=== PATIENT | male | born 1945 | race Caucasian/White ===

== ENCOUNTER 2018-10-01 15:19 | Inpatient (IN) | payer MEDICARE ==
[~2018-10-01] VITALS: Ht 177.8 cm; Wt 65.8 kg
[2018-10-01 16:38] LABS: BASOPHILS # (AUTO) 0.06 x10^3/uL (0-0.1); BASOPHILS % (AUTO) 1 % (0-1); EOSINOPHILS # (AUTO) 0.15 x10^3/uL (0-0.4); EOSINOPHILS % (AUTO) 2 % (1-7); LYMPHOCYTES % (AUTO) 24 % (22-44); MD NO; MEAN CORPUSCULAR HEMOGLOBIN 30.2 pg (27.5-34.5); MEAN CORPUSCULAR HGB CONC 33.7 g/dL (33.2-36.2); MEAN CORPUSCULAR VOLUME 89.8 fL (81-97); MEAN PLATELET VOLUME 7.8 fL (7.4-10.4); MONOCYTES # (AUTO) 0.78 x10^3/uL (0.2-0.8); MONOCYTES % (AUTO) 10 % (2-9); NEUTROPHILS # (AUTO) 4.73 x10^3/uL (1.8-6.8); NEUTROPHILS % (AUTO) 63 % (42-75); PLATELET COUNT 193 x10^3/uL (130-400); RED BLOOD COUNT 4.89 x10^6/uL (4.38-5.82); RED CELL DISTRIBUTION WIDTH 13.4 % (9.4-14.8)
[2018-10-01 16:48] LABS: CHLORIDE 104 mmol/L (98-107)
[2018-10-01 16:49] LABS: ALBUMIN 3.8 g/dL (3.4-5.0); ANION GAP 7 mmol/L (5-15); CALCIUM 8.1 mg/dL (8.5-10.1); CREATININE 1.31 mg/dL (0.7-1.3)
[2018-10-01] MEDS ORDERED: CARV-39 PO (18:04)
[2018-10-01] MEDS ORDERED: ROSU5TAB PO (18:05)
[2018-10-01] MEDS ORDERED: ASPIRIN 81 MG TABLET CHEW ONE (18:24)
[2018-10-01] MEDS ORDERED: ASPIRIN 81 MG TABLET CHEW PO ONE (18:30)
[2018-10-01] MEDS ORDERED: SODIUM CHLORIDE 0.9% 1,000ML IVBOLUS ONE (19:00)
[2018-10-01] MEDS ORDERED: DOCUSATE 100 MG CAPSULE PO PRN (19:30)
[2018-10-01] MEDS ORDERED: ONDANSETRON 4 MG TABLET PO PRN (19:30)
[2018-10-01] MEDS ORDERED: BISACODYL 10 MG SUPP PR PRN (19:30)
[2018-10-01] MEDS ORDERED: POLYETHYLENE GLYCOL 17 GM PACKET PO PRN (19:30)
[2018-10-01] MEDS ORDERED: ACETAMINOPHEN 325 MG TABLET PO PRN (19:30)
[2018-10-01 20:00] VITALS: BP 148/75
[2018-10-01 20:16] LABS: HEMOGLOBIN A1C 11.4 % (4.2-6.3)
[2018-10-01] MEDS: CARVEDILOL 25 MG TABLET PO SCH (22:35)
[2018-10-01] MEDS: ATORVASTATIN 40 MG TABLET PO SCH (22:35)
[2018-10-02] VITALS: BP 118/61
[2018-10-02 05:20] LABS: BASOPHILS # (AUTO) 0.05 x10^3/uL (0-0.1); BASOPHILS % (AUTO) 1 % (0-1); EOSINOPHILS # (AUTO) 0.16 x10^3/uL (0-0.4); EOSINOPHILS % (AUTO) 2 % (1-7); LYMPHOCYTES # (AUTO) 1.96 x10^3/uL (1-3.4); LYMPHOCYTES % (AUTO) 26 % (22-44); MD NO; MEAN CORPUSCULAR HEMOGLOBIN 30.7 pg (27.5-34.5); MEAN CORPUSCULAR HGB CONC 34.3 g/dL (33.2-36.2); MEAN CORPUSCULAR VOLUME 89.5 fL (81-97); MEAN PLATELET VOLUME 8.1 fL (7.4-10.4); MONOCYTES % (AUTO) 9 % (2-9); NEUTROPHILS # (AUTO) 4.68 x10^3/uL (1.8-6.8); NEUTROPHILS % (AUTO) 62 % (42-75); PLATELET COUNT 183 x10^3/uL (130-400); RED BLOOD COUNT 4.74 x10^6/uL (4.38-5.82); RED CELL DISTRIBUTION WIDTH 13.3 % (9.4-14.8)
[2018-10-02 05:30] LABS: ALBUMIN 3.5 g/dL (3.4-5.0); ANION GAP 8 mmol/L (5-15); CALCIUM 8.4 mg/dL (8.5-10.1); CHLORIDE 107 mmol/L (98-107)
[2018-10-02 05:35] LABS: ALANINE AMINOTRANSFERASE 33 U/L (12-78); ALKALINE PHOSPHATASE 70 U/L (45-117); BILIRUBIN,TOTAL 0.6 mg/dL (0.2-1.0); CHOL/HDL RATIO 2.7; CHOLESTEROL, TOTAL 129 mg/dL (140-239); CREATININE 1.26 mg/dL (0.7-1.3); HDL CHOL % 36 % (26-37); HDL CHOLESTEROL (DIRECT) 47 mg/dL (40-60); LDL CHOLESTEROL,CALCULATED 34 mg/dL (54-169); LDL/HDL RATIO 0.7 (0.5-3.0); TOTAL PROTEIN 6.5 g/dL (6.4-8.2); TRIGLYCERIDES 241 mg/dL (50-200); VLDL CHOLESTEROL 48 mg/dL (0-25)
[2018-10-02] MEDS ORDERED: INSULIN LISPRO 100 UNITS/ML, PEN SQ-INSULIN SCH (07:00)
[2018-10-02 07:04] VITALS: BP 134/69
[2018-10-02] MEDS: CARVEDILOL 25 MG TABLET PO SCH ×2 (07:58→21:28)
[2018-10-02] MEDS: CEFDINIR 300 MG CAPSULE PO SCH (07:58)
[2018-10-02] MEDS ORDERED: ASPIRIN 81 MG TABLET CHEW PO/NG SCH (09:00)
[2018-10-02] MEDS: CLOPIDOGREL 75 MG TABLET PO SCH (09:34)
[2018-10-02 10:01] LABS: HCT (SEDRATE) 42.5 % (39.2-51.8)
[2018-10-02 10:46] LABS: MICROSCOPIC NOT IND
[2018-10-02 10:50] LABS: CULTURE INDICATED? NO
[2018-10-02] MEDS ORDERED: OMNIPAQUE 350 MG/ML, 100ML BOTTLE ONE (11:38)
[2018-10-02 11:43] LABS: AMPHETAMINE SCREEN, URINE Negative (Negative); BARBITURATE SCREEN, URINE Negative (Negative); BENZODIAZEPINE SCREEN, URINE Negative (Negative); CANNABINOID SCREEN, URINE Negative (Negative); COCAINE SCREEN, URINE Negative (Negative); METHADONE SCREEN, URINE Negative (Negative); OPIATE SCREEN, URINE Negative (Negative)
[2018-10-02] MEDS: INSULIN LISPRO 100 UNITS/ML, PEN SQ-INSULIN SCH ×3 (12:27→22:01)
[2018-10-02 13:05] VITALS: BP 120/70
[2018-10-02 20:09] VITALS: BP 121/68
[2018-10-02] MEDS: ATORVASTATIN 40 MG TABLET PO SCH (22:00)
[2018-10-03 00:48] VITALS: BP 132/70
[2018-10-03 07:48] VITALS: BP 118/65
[2018-10-03] MEDS: INSULIN LISPRO 100 UNITS/ML, PEN SQ-INSULIN SCH ×2 (08:30→11:00)
[2018-10-03] MEDS: CLOPIDOGREL 75 MG TABLET PO SCH (08:30)
[2018-10-03] MEDS: CEFDINIR 300 MG CAPSULE PO SCH (08:30)
[2018-10-03] MEDS: CARVEDILOL 25 MG TABLET PO SCH (08:31)
[2018-10-03] MEDS ORDERED: ASPIRIN 81 MG TABLET CHEW PO SCH (09:00)
[2018-10-03] MEDS ORDERED: ATOR40TA78 PO (09:36)
[2018-10-03] MEDS ORDERED: METF500T PO (09:36)
[2018-10-03] MEDS ORDERED: ASPI-515 PO (09:36)
[2018-10-03] MEDS ORDERED: CLOP75TA PO (09:36)
[2018-10-03] MEDS ORDERED: CEFD300C37 PO (09:54)
== END 2018-10-03 12:07 | disposition home or self-care (01) | DRG 65 ==
LOC: ED 16:27 → EDIP 18:41 → 4EST 19:28 → DCLOUNGE 10-03 11:57
PROVIDERS: ADMIT Internal Medicine; ATTEND Internal Medicine
DX: I63.412 Cerebral infarction due to embolism of left middle cerebral artery (principal); G81.91 Hemiplegia, unspecified affecting right dominant side; E11.65 Type 2 diabetes mellitus with hyperglycemia; E78.5 Hyperlipidemia, unspecified; I10 Essential (primary) hypertension; I25.10 Atherosclerotic heart disease of native coronary artery without angina pectoris; J01.90 Acute sinusitis, unspecified; J32.2 Chronic ethmoidal sinusitis; M50.30 Other cervical disc degeneration, unspecified cervical region; Z79.82 Long term (current) use of aspirin; Z82.3 Family history of stroke; Z79.01 Long term (current) use of anticoagulants; Z79.899 Other long term (current) drug therapy; Z95.5 Presence of coronary angioplasty implant and graft; Z88.0 Allergy status to penicillin
CPT/HCPCS: 36415; 70450; 70496; 70551; 72141; 80048; 80053; 80061; 80307; 81003; 82040; 82962; 83036; 85025; 85651; 93005; 93306; 93880; 99285; G0378; Q9967; J1815

== ENCOUNTER → 2019-12-05 | Outpatient (CLI) | payer MEDICARE, OTHER ==
[~2019-12-05] MED LIST: ASPI-515 PO; ATOR40TA78 PO; CARV-39 PO; CEFD300C37 PO; CLOP75TA PO; GADOTERATE 7.5 MMOL/15 ML SYR ONE; METF500T PO; ROSU5TAB PO
== END | disposition home or self-care (01) ==
LOC: CFH 12:40
PROVIDERS: ATTEND Family Medicine
DX: I63.40 Cerebral infarction due to embolism of unspecified cerebral artery (principal)
CPT/HCPCS: 70553; A9575

== ENCOUNTER → 2019-12-12 | Outpatient (CLI) | payer MEDICARE, OTHER ==
[~2019-12-12] MED LIST changes: -GADOTERATE 7.5 MMOL/15 ML SYR ONE
== END | disposition home or self-care (01) ==
LOC: CFH 13:50
PROVIDERS: ATTEND Family Medicine
DX: M17.11 Unilateral primary osteoarthritis, right knee (principal)

== ENCOUNTER 2020-04-17 08:28 | Emergency (ER) | payer MEDICARE, OTHER ==
[~2020-04-17] VITALS: Ht 180.3 cm; Wt 81.1 kg
--- NOTE | 2020-04-17 08:47 | NUR ---
THIS PT GOT SELF DRESSED IN GOWN. SITTING IN BED, CONVERSING WITH NURSE. PA TO BEDSIDE, PT STATING BLEEDING WITH BM. PT STATES HE WAS GOING TO SEE HIS PCP BUT CALLED YESTERDAY AND THEY TOLD HIM TO COME TO THE ER. NO SIGNS OF DISTRES, DENIES PAIN, PT ASKING TO GO HOME.
[2020-04-17 09:24] LABS: BASOPHILS # (AUTO) 0.04 x10^3/uL (0-0.1); BASOPHILS % (AUTO) 1 % (0-1); EOSINOPHILS # (AUTO) 0.27 x10^3/uL (0-0.4); EOSINOPHILS % (AUTO) 3 % (1-7); LYMPHOCYTES # (AUTO) 1.26 x10^3/uL (1-3.4); LYMPHOCYTES % (AUTO) 15 % (22-44); MD NO; MEAN CORPUSCULAR HEMOGLOBIN 27.6 pg (27.5-34.5); MEAN CORPUSCULAR HGB CONC 32.5 g/dL (33.2-36.2); MEAN CORPUSCULAR VOLUME 84.9 fL (81-97); MEAN PLATELET VOLUME 7.1 fL (7.4-10.4); MONOCYTES # (AUTO) 0.69 x10^3/uL (0.2-0.8); MONOCYTES % (AUTO) 8 % (2-9); NEUTROPHILS # (AUTO) 6.25 x10^3/uL (1.8-6.8); NEUTROPHILS % (AUTO) 74 % (42-75); PLATELET COUNT 314 x10^3/uL (130-400); RED BLOOD COUNT 4.04 x10^6/uL (4.38-5.82); RED CELL DISTRIBUTION WIDTH 14.4 % (9.4-14.8)
[2020-04-17 09:34] LABS: ALANINE AMINOTRANSFERASE 50 U/L (12-78); ALBUMIN 3.2 g/dL (3.4-5.0); ANION GAP 9 mmol/L (5-15); CALCIUM 8.6 mg/dL (8.5-10.1); CHLORIDE 105 mmol/L (98-107); CREATININE 1.13 mg/dL (0.7-1.3)
[2020-04-17 09:39] LABS: ALKALINE PHOSPHATASE 129 U/L (45-117); BILIRUBIN,TOTAL 0.7 mg/dL (0.2-1.0); TOTAL PROTEIN 6.9 g/dL (6.4-8.2)
--- NOTE | 2020-04-17 09:47 | NUR ---
PT SITTING IN BED WATCHING TV. DENIED WANTING WARM BLANKET. NO SIGNS OF DISTRESS.
--- NOTE | 2020-04-17 10:27 | NUR ---
PT GOT SELF DRESSED, NO SIGNS OF DISTRESS. QUESTIONS ANSWERED ABOUT D/C, PT EDUCATED ABOUT REFERAL GIVEN.
[2020-04-17 10:40] VITALS: BP 117/66
== END 2020-04-17 10:42 | disposition home or self-care (01) ==
LOC: ED 09:18
DX: K59.00 Constipation, unspecified (principal); K92.1 Melena; I10 Essential (primary) hypertension; E11.9 Type 2 diabetes mellitus without complications; Z86.73 Personal history of transient ischemic attack (TIA), and cerebral infarction without residual deficits
CPT/HCPCS: 36415; 80053; 85025; 99283

== ENCOUNTER 2020-05-01 13:10 | Outpatient (CLI) | payer MEDICARE, OTHER ==
[2020-05-01 13:31] LABS: BASOPHILS # (AUTO) 0.02 x10^3/uL (0-0.1); BASOPHILS % (AUTO) 0 % (0-1); EOSINOPHILS % (AUTO) 1 % (1-7); LYMPHOCYTES # (AUTO) 1.45 x10^3/uL (1-3.4); LYMPHOCYTES % (AUTO) 16 % (22-44); MD NO; MEAN CORPUSCULAR HEMOGLOBIN 27.5 pg (27.5-34.5); MEAN CORPUSCULAR HGB CONC 32.6 g/dL (33.2-36.2); MEAN CORPUSCULAR VOLUME 84.2 fL (81-97); MEAN PLATELET VOLUME 6.9 fL (7.4-10.4); MONOCYTES # (AUTO) 0.78 x10^3/uL (0.2-0.8); MONOCYTES % (AUTO) 9 % (2-9); NEUTROPHILS # (AUTO) 6.76 x10^3/uL (1.8-6.8); NEUTROPHILS % (AUTO) 74 % (42-75); PLATELET COUNT 355 x10^3/uL (130-400); RED BLOOD COUNT 4.22 x10^6/uL (4.38-5.82); RED CELL DISTRIBUTION WIDTH 15.1 % (9.4-14.8)
[2020-05-01 13:44] LABS: ALANINE AMINOTRANSFERASE 19 U/L (12-78); ALBUMIN 3.3 g/dL (3.4-5.0); ANION GAP 6 mmol/L (5-15); CALCIUM 8.9 mg/dL (8.5-10.1); CHLORIDE 103 mmol/L (98-107); CREATININE 1.19 mg/dL (0.7-1.3)
[2020-05-01 13:51] LABS: ALKALINE PHOSPHATASE 101 U/L (45-117); BILIRUBIN,TOTAL 0.6 mg/dL (0.2-1.0); TOTAL PROTEIN 7.1 g/dL (6.4-8.2)
[2020-05-02] MEDS ORDERED: OMNIPAQUE 350 MG/ML, 100ML BOTTLE ONE (14:21)
== END 2020-05-01 23:59 | disposition home or self-care (01) ==
LOC: RAD 13:10
PROVIDERS: ATTEND Internal Medicine Gastroenterology
DX: K31.89 Other diseases of stomach and duodenum (principal); K22.70 Barrett's esophagus without dysplasia; K92.1 Melena; Z88.0 Allergy status to penicillin
CPT/HCPCS: 36415; 80053; 82378; 85025; Q9967

== ENCOUNTER 2020-05-02 11:45 | Outpatient (CLI) | payer MEDICARE, OTHER ==
[2020-05-02] MEDS ORDERED: OMNIPAQUE 350 MG/ML, 100ML BOTTLE ONE (14:21)
== END 2020-05-02 23:59 | disposition home or self-care (01) ==
LOC: RAD 11:45
PROVIDERS: ATTEND Internal Medicine Gastroenterology
DX: M47.814 Spondylosis without myelopathy or radiculopathy, thoracic region (principal); K92.1 Melena; K31.89 Other diseases of stomach and duodenum; K22.70 Barrett's esophagus without dysplasia
CPT/HCPCS: 71260; 74177; Q9967

== ENCOUNTER 2020-05-29 09:59 | Day surgery (SDC) | payer MEDICARE, OTHER ==
[~2020-05-29] VITALS: Ht 177.8 cm; Wt 78.6 kg
[2020-05-29] MEDS ORDERED: VANCOMYCIN PMX 1GM/200ML 200 ML IV ONE (10:27)
[2020-05-29] MEDS ORDERED: SODIUM CHLORIDE 0.9% 1,000 ML IV SCH (10:27)
[2020-05-29 10:29] VITALS: BP 138/81
[2020-05-29] MEDS ORDERED: LIDOCAINE 1%, 20ML ONE (10:49)
[2020-05-29] MEDS ORDERED: LIDOCAINE 1%, 10ML ONE (10:49)
[2020-05-29] MEDS ORDERED: MIDAZOLAM 1 MG/ML, 5ML ONE (12:17)
[2020-05-29] MEDS ORDERED: FENTANYL PF 100 MCG/2ML ONE ×2 (12:17)
[2020-05-29] MEDS ORDERED: NALOXONE 1 MG/ML, 2ML ONE (12:18)
[2020-05-29] MEDS ORDERED: FLUMAZENIL 0.1 MG/1 ML, 5ML ONE (12:18)
== END 2020-05-29 14:10 | disposition home or self-care (01) ==
LOC: OUT 09:59
PROVIDERS: ATTEND Internal Medicine Hematology & Oncology
DX: C20 Malignant neoplasm of rectum (principal); E11.9 Type 2 diabetes mellitus without complications; I69.351 Hemiplegia and hemiparesis following cerebral infarction affecting right dominant side; G47.00 Insomnia, unspecified; I10 Essential (primary) hypertension; E78.00 Pure hypercholesterolemia, unspecified; I25.2 Old myocardial infarction; Z79.02 Long term (current) use of antithrombotics/antiplatelets; Z79.899 Other long term (current) drug therapy; Z88.0 Allergy status to penicillin; Z95.5 Presence of coronary angioplasty implant and graft
CPT/HCPCS: 36561; 76937; 77001; 99156; 99157; C1788; J1642; J2250; J3010; J3370; J7030; J2310